=== PATIENT | male | born 1990 | race Caucasian/White ===

== ENCOUNTER 2022-01-16 19:22 | Emergency (ER) | payer BC ==
[2022-01-16] MEDS ORDERED: Alum Hydrox/Mag Hydrox/Simeth 30 ML, Lidocaine 2% 15 ML PO ONE ×2 (19:45)
[2022-01-16] MEDS ORDERED: predniSONE 20 MG Tab PO STA (19:53)
== END 2022-01-16 20:20 | disposition home or self-care (01) ==
LOC: JD.ED 19:22
DX: L50.1 Idiopathic urticaria (principal)
CPT/HCPCS: 99282; A9270; J7512